=== PATIENT | female | born 1975 | race Caucasian/White ===

== ENCOUNTER 2021-01-07 19:11 | Emergency (ER) | payer BC, SELFPAY ==
[~2021-01-07] VITALS: Ht 160 cm; Wt 61.2 kg
[2021-01-07 19:20] VITALS: BP_SYST 124
[2021-01-07 20:26] LABS: BASOPHILS # (AUTO) 0.1 K/uL (0.0-0.2); BASOPHILS % (AUTO) 0.7 % (0.0-2.0); CALCIUM 8.7 mg/dL (8.4-11.0); CREATININE 0.76 mg/dL (0.55-1.30); EOSINOPHILS # (AUTO) 0.1 K/uL (0.0-0.4); EOSINOPHILS % (AUTO) 1.5 % (0.0-4.0); HEMATOCRIT 26.4 % (36-48); HEMOGLOBIN 8.4 g/dL (12.0-16.0); LYMPHOCYTES # (AUTO) 2.3 K/uL (1.0-5.5); LYMPHOCYTES % (AUTO) 33.9 % (20.5-51.5); MEAN CORPUSCULAR HEMOGLOBIN 22 pg (27-31); MEAN CORPUSCULAR HGB CONC 32 % (32-36); MEAN CORPUSCULAR VOLUME 67 fL (79.0-98.0); MONOCYTES # (AUTO) 0.6 K/uL (0.0-1.0); MONOCYTES % (AUTO) 8.9 % (1.7-9.3); NEUTROPHILS # (AUTO) 3.7 K/uL (1.8-7.7); PLATELET COUNT (AUTO) 309 K/uL (130-430); POTASSIUM 3.1 mmol/L (3.5-5.1); RED BLOOD CELL COUNT(AUTO) 3.93 MIL/uL (4.2-6.2); RED CELL DISTRIBUTION WIDTH 20.2 % (9.0-15.0); WHITE BLOOD COUNT (AUTO) 6.7 K/uL (4.8-10.8)
[2021-01-07] MEDS ORDERED: MAG HYDROX/AL HYDROX/SIMETH 30 ML, LIDOCAINE VISCOUS 2% 15ML (PO) 15 ML, DICYCLOMINE HC... PO ONE ×3 (20:30)
[2021-01-07 20:33] LABS: ALBUMIN 3.7 g/dL (3.4-4.8); TOTAL BILIRUBIN 0.2 mg/dL (0.0-1.0)
[2021-01-07 21:21] LABS: BILIRUBIN,URINE NEGATIVE (NEGATIVE); BLOOD, URINE NEGATIVE (NEGATIVE); CLARITY/URINE SL CLOUDY (CLEAR); COLOR,URINE YELLOW (YELLOW); GLUCOSE,URINE NEGATIVE (NEGATIVE); KETONES,URINE TRACE (NEGATIVE); LEUKOCYTE ESTERASE ,URINE NEGATIVE (NEGATIVE); NITRITE, URINE NEGATIVE (NEGATIVE); PH,URINE 5.5 (5.0-8.0); PROTEIN URINE NEGATIVE (NEGATIVE); UROBILINOGEN,URINE 0.2 (0.2-1.0)
[2021-01-07] MEDS ORDERED: ONDANSETRON HCL 4 MG/2 ML VIAL IVP ONE (22:30)
[2021-01-07] MEDS ORDERED: MAG HYDROX/AL HYDROX/SIMETH 30 ML, DICYCLOMINE HCL 20 MG, LIDOCAINE VISCOUS 2% 15ML (PO... PO ONE ×3 (22:30)
[2021-01-07] MEDS ORDERED: MORPHINE 2 MG/ML INJ. SYRINGE IVP ONE (22:30)
[2021-01-07] MEDS ORDERED: MORPHINE 4 MG INJ. 4 MG/ML VIAL IVP ONE (22:45)
[2021-01-07] MEDS ORDERED: LIDOCAINE VISCOUS 2%, 15 ML UDC ONE (23:52)
[2021-01-07] MEDS ORDERED: MAG-AL HYDROX/SIMETH 30 ML UDC ONE (23:52)
[2021-01-07] MEDS ORDERED: GASTROGRAFIN 120 ML ONE (23:56)
[2021-01-08] MEDS ORDERED: METOCLOPRAMIDE HCL 10 MG/2 ML VIAL IVP ONE (02:15)
[2021-01-08] MEDS ORDERED: ONDANSETRON HCL 4 MG/2 ML VIAL IVP ONE (02:15)
[2021-01-08] MEDS ORDERED: NACL 0.9% 1,000 ML IV SCH (05:45)
[2021-01-08] MEDS ORDERED: guaiFENesin/DEXTROMETHORPHAN 10 ML UDC PO PRN (08:15)
[2021-01-08] MEDS ORDERED: ACETAMINOPHEN 500 MG TABLET PO PRN (08:15)
[2021-01-08] MEDS ORDERED: ONDANSETRON HCL 4 MG/2 ML VIAL IVP PRN (08:15)
[2021-01-08] MEDS ORDERED: ZOLPIDEM TARTRATE 5 MG TABLET PO PRN (08:15)
[2021-01-08] MEDS ORDERED: HYDROcodone/ACETAMIN 7.5-325 MG TAB PO PRN (08:15)
[2021-01-08] MEDS ORDERED: DOCUSATE SODIUM 100 MG/10 ML UDC PO PRN (08:15)
[2021-01-08] MEDS ORDERED: PANTOPRAZOLE SODIUM 40 MG TAB PO SCH (09:00)
[2021-01-08 09:17] VITALS: BP_SYST 108
[2021-01-09] MEDS ORDERED: POTASSIUM CHLORIDE 40 MEQ, LIDOCAINE JECT 2% PF 100 MG 50 MG in NS 250 ML IV PRN (09:00)
== END 2021-01-08 05:40 | disposition left against medical advice (07) ==
LOC: SED 19:11 → UNDOADMIN 01-08 05:35 → SMU 01-08 05:35 → SED 01-08 05:40 → UNDODISIN 01-08 09:18
DX: R11.2 Nausea with vomiting, unspecified (principal); R10.12 Left upper quadrant pain; E03.9 Hypothyroidism, unspecified; Z20.822 Contact with and (suspected) exposure to COVID-19
CPT/HCPCS: 36415 ×2; 74018; 74176; 76376; 80053; 81003; 83690; 85025; 87426; 96361; 96374; 96375 ×2; 96376; 99285; J2001; J2270; J2405 ×2; J2765; J7030; Q9967; Q9963